=== PATIENT | male | born 1990 | race Caucasian/White ===

== ENCOUNTER 2021-03-17 15:32 | Emergency (ER) | payer OTHER ==
[~2021-03-17] VITALS: Ht 180.3 cm; Wt 90.7 kg
[~2021-03-17 15:32] MED LIST: ANTIBIOTIC PO
[2021-03-17 16:38] LABS: BASOPHILS 0.3 % (0.0-2.0); EOSINOPHILS 0.6 % (0.0-3.0); HEMATOCRIT 36.8 % (42.0-52.0); HEMOGLOBIN 11.9 gm/dL (14.0-18.0); LYMPHOCYTES 13.3 % (24.0-44.0); MCH 23.9 pg (26.0-34.0); MCHC 32.4 g/dL (28.0-37.0); MCV 73.8 fL (80.0-100.0); PLATELET COUNT 231 thou/uL (150-400); POLYS 80.8 % (36.0-66.0); RBC 4.99 mil/uL (4.50-6.00); RDW 14.7 % (10.5-14.5); WBC 9.8 thou/uL (4.0-11.0)
[2021-03-17 16:47] LABS: CREATININE 0.9 mg/dL (0.7-1.3)
[2021-03-17 16:53] LABS: ALBUMIN 3.1 g/dL (3.4-5.0); TOTAL BILIRUBIN 0.3 mg/dL (0.2-1.0); TOTAL PROTEIN 8.9 g/dL (6.4-8.2)
[2021-03-17 17:24] LABS: HYPOCHROMASIA 1+; MICROCYTES 1+
[2021-03-17 18:38] LABS: URINE BILIRUBIN NEGATIVE (Negative); URINE BLOOD 3+ (Negative); URINE CLARITY CLEAR; URINE COLOR YELLOW; URINE GLUCOSE-RANDOM* NEGATIVE (Negative); URINE KETONES NEGATIVE (Negative); URINE LEUKOCYTES-REFLEX NEGATIVE (Negative); URINE NITRITE-REFLEX NEGATIVE (Negative); URINE PROTEIN (DIPSTICK) 2+ (Negative); URINE SPECIFIC GRAVITY 1.015 (1.005-1.035); URINE UROBILINOGEN 0.2 E.U./dl (0.2-1.0)
[2021-03-17 18:44] LABS: BACTERIA-REFLEX 1-9 Few /HPF (None Seen); CASTS None Seen /LPF (None Seen); CRYSTALS None Seen /LPF (None Seen); SQUAMOUS None Seen /LPF (0-3); URINE WBC-REFLEX 0-5 Rare /HPF (0-5)
[2021-03-17] MEDS ORDERED: BACTRIM DS TAB1 EAC1 PO (22:48)
[2021-03-17] MEDS ORDERED: CLONIDINE HCL0.1 MG PO (22:48)
[2021-03-17 23:09] VITALS: BP 139/69
--- NOTE | 2021-03-18 09:51 | EKG ---
[address] [place] [address] ELECTROCARDIOGRAM REPORT Name: RONIT RODRIGUEZ Room #: DEP ROMAN Schulz#: [id number] Admission: 03/17/21 Attend Phys: Discharge: 03/17/21 Date of : 89 Report #: [id number] [facility] ED Test Date: 2021-03-17 Test Time: 17:57:31 Pat Name: RONIT RODRIGUEZ Department: Room: Gender: Fire Chief: ronnie : 1990 Requested By: Karen Ellington Order Number: [id number] MD: Ministerio Ryan Measurements Intervals [place] Rate: 72 P: 7 ND: 119 QRS: 15 QRSD: 94 T: 37 QT: 388 QTc: 425 Interpretive Statements Sinus rhythm Borderline short ND interval No previous ECG available for comparison Electronically Signed On 03-18-2021 9:50:53 CDT by Ministerio Ryan [email or web address] <ELECTRONICALLY SIGNED> By: Ministerio Ryan MD, [facility] 03/18/21 0950 1757 1757 Ministerio Ryan MD, FACC /EPI
== END 2021-03-17 23:11 | disposition home or self-care (01) ==
LOC: ER 15:32
PROVIDERS: Nurse Practitioner Family
DX: L02.511 Cutaneous abscess of right hand (principal); F11.13 Opioid abuse with withdrawal; Z88.8 Allergy status to other drugs, medicaments and biological substances; Y04.0XXA Assault by unarmed brawl or fight, initial encounter; Y93.89 Activity, other specified; Y92.89 Other specified places as the place of occurrence of the external cause; Y99.8 Other external cause status